=== PATIENT | female | born 1950 | race Caucasian/White ===

== ENCOUNTER → 2018-05-25 | Outpatient (CLI) | payer MEDICARE ==
[~2018-05-25] MED LIST: FURO40TA5 PO; LIDOCAINE HCL 1% 20 ML VIAL ONE; METO10TA8 PO; TRIA1CAP6 PO
[2018-05-25 09:50] LABS: INR 1.19 (0.85-1.15); PARTIAL THROMBOPLASTIN TIME 31.1 SEC (26.3-35.5); PROTHROMBIN TIME 12.5 SEC (9.6-11.6)
--- NOTE | 2018-05-25 10:40 | NUR ---
U/S GD PARACENTESIS PROCEDURE PERFORMED BY DR Jacque HIGGINS. PUNCTURE SITE LLQ AND PATIENT TOLERATED PROCEDURE WELL. TOTAL REMOVED 3.8 LITERS OF CLOUDY YELLOW FLUID. SPECIMEN SENT TO LAB. END OF PROCEDURE AT 1010. CATHETER REMOVED AND DRESSING APPLIED. NO BLEEDING NOTED. DISCHARGE INSTRUCTIONS GIVEN TO PATIENT AND VERBALIZED UNDERSTANDING. DISCHARGED VIA W/C AT 1040. AAO X3 WITH NO C/O PAIN.
[2018-05-25 14:43] LABS: APPEARANCE BODY FLUID CLOUDY (CLEAR); COLOR,BODY FLUID YELLOW (LT YELLOW); SPECIMENTYPE,BODY FLUID ASCITES; TOTAL VOLUME,BODY FLUID 3800 mL
[2018-05-25 14:44] LABS: BODY FLUID RBC 100 /cu. mm.; BODY FLUID WBC 432 /cu. mm.
[2018-05-25 14:48] LABS: BF LYMPHOCYTE 13 %; BF MESOTHELIAL 6 %; BF MONOCYTE 19 %
== END | disposition home or self-care (01) ==
LOC: RAH 08:17
PROVIDERS: ATTEND Internal Medicine Hematology & Oncology
DX: R18.8 Other ascites (principal); K74.60 Unspecified cirrhosis of liver; D69.6 Thrombocytopenia, unspecified; I10 Essential (primary) hypertension; E66.01 Morbid (severe) obesity due to excess calories; L40.9 Psoriasis, unspecified; J44.9 Chronic obstructive pulmonary disease, unspecified; F32.9 Major depressive disorder, single episode, unspecified; M10.9 Gout, unspecified; Z79.899 Other long term (current) drug therapy; Z79.84 Long term (current) use of oral hypoglycemic drugs; Z98.890 Other specified postprocedural states; Z88.8 Allergy status to other drugs, medicaments and biological substances; Z80.3 Family history of malignant neoplasm of breast; Z80.8 Family history of malignant neoplasm of other organs or systems
CPT/HCPCS: 36415; 49083; 85610; 85730; 87071; 87205; 88104; 88305; 89051; A4215

== ENCOUNTER → 2018-05-31 | Outpatient (CLI) | payer MEDICARE ==
[~2018-05-31] MED LIST changes: +ALBUMIN (HUMAN) 25% 100 ML IV SCH; -FURO40TA5 PO; -LIDOCAINE HCL 1% 20 ML VIAL ONE; -METO10TA8 PO; -TRIA1CAP6 PO
[2018-05-31 13:13] LABS: INR 1.21 (0.85-1.15); PARTIAL THROMBOPLASTIN TIME 32.7 SEC (26.3-35.5); PROTHROMBIN TIME 12.7 SEC (9.6-11.6)
--- NOTE | 2018-05-31 15:26 | NUR ---
US GUIDED PARACENTESIS PROCEDURE PERFORMED BY DR. ASHFORD, PUNCTURES SITE TO RLQ AND PATIENT TOLERATED IT WELL. TOTAL REMOVED WAS 4.3LTS OD ASCITES FLUID . END OF PROCEDURE AT 1437.CATHETER REMOVED AND DRESSING APPLIED. NO BLEEDING NOTED. DISCHARGED INSTRUCTIONS GIVEN TO PATIENT AND SHE VERBALIZED UNDERSTANDING. DISCHARGED VIA WHEELCHAIR AAOX3 IN NO DISTRESS.
== END | disposition home or self-care (01) ==
LOC: RAH 11:56
PROVIDERS: ATTEND Internal Medicine Hematology & Oncology
DX: R18.8 Other ascites (principal); Z79.01 Long term (current) use of anticoagulants; I82.90 Acute embolism and thrombosis of unspecified vein; I26.99 Other pulmonary embolism without acute cor pulmonale
CPT/HCPCS: 36415; 49083; 85610; 85730; 96365; A4215; P9046

== ENCOUNTER → 2018-06-11 | Outpatient (CLI) | payer MEDICARE ==
[~2018-06-11] MED LIST changes: -ALBUMIN (HUMAN) 25% 100 ML IV SCH; +FURO40TA5 PO; +METO10TA8 PO; +TRIA1CAP6 PO
[2018-06-11 10:49] LABS: INR 1.15 (0.85-1.15); PARTIAL THROMBOPLASTIN TIME 31.3 SEC (26.3-35.5)
--- NOTE | 2018-06-11 11:25 | NUR ---
US GUIDED PARACENTESIS PROCEDURE PERFORMED BY DR. ASHFORD. PUNCTURE SITE TO THE RIGHT SIDE OF THE ABDOMEN. PT TOLERATED PROCEDURE WELL. TOTAL REMOVED 1 LITER. END OF PROCEDURE AT 1135. CATHETER REMOVED AND DRESSING APPLIED. NO BLEEDING NOTED. DISCHARGE INSTRUCTIONS GIVEN TO PATIENT AND VERBALIZED UNDERSTANDING. DISCHARGED AMBULATORY @ 1230. STABLE, AAO X 3. NO COMPLAINS OF PAIN.
[2018-06-11 12:41] LABS: SPECIMENTYPE,BODY FLUID ASCITES
[2018-06-11 12:42] LABS: APPEARANCE BODY FLUID CLOUDY (CLEAR); COLOR,BODY FLUID YELLOW (LT YELLOW); TOTAL VOLUME,BODY FLUID 1000 mL
[2018-06-11 12:43] LABS: BODY FLUID RBC 399 /cu. mm.; BODY FLUID WBC 579 /cu. mm.
[2018-06-11 12:51] LABS: BF LYMPHOCYTE 50 %; BF MESOTHELIAL 26 %; BF MONOCYTE 20 %
== END | disposition home or self-care (01) ==
LOC: RAH 09:41
PROVIDERS: ATTEND Internal Medicine Hematology & Oncology
DX: R18.8 Other ascites (principal); D69.6 Thrombocytopenia, unspecified; K74.60 Unspecified cirrhosis of liver
CPT/HCPCS: 36415; 49083; 76700; 85610; 85730; 87071; 87205; 89051; 93975; A4215

== ENCOUNTER 2018-06-12 10:39 | Day surgery (SDC) | payer MEDICARE ==
[2018-06-12] VITALS (7 sets, daily range): BP systolic 94–133; BP diastolic 46–50
[~2018-06-12] VITALS: Ht 162.6 cm; Wt 98.3 kg
[2018-06-12] MEDS ORDERED: TRIA1CAP6 PO (12:06)
[2018-06-12] MEDS ORDERED: METO10TA8 PO (12:06)
[2018-06-12] MEDS ORDERED: FURO40TA5 PO (12:06)
[2018-06-12] MEDS ORDERED: SODIUM CHLORIDE 0.9% 1000ML 1,000 ML IV ONE (12:09)
[2018-06-12] MEDS ORDERED: FENTANYL CITRATE PF 50 MCG/1 ML 2ML VIAL ONE (12:29)
== END 2018-06-12 13:23 | disposition home or self-care (01) ==
LOC: DAH 10:39 → ENDO 10:39
PROVIDERS: ATTEND Internal Medicine
DX: Z12.11 Encounter for screening for malignant neoplasm of colon (principal); K63.5 Polyp of colon; D12.4 Benign neoplasm of descending colon; D12.3 Benign neoplasm of transverse colon; K62.1 Rectal polyp; Z86.010 Personal history of colon polyps; Z68.39 Body mass index [BMI] 39.0-39.9, adult; K70.31 Alcoholic cirrhosis of liver with ascites; E03.9 Hypothyroidism, unspecified; E11.9 Type 2 diabetes mellitus without complications; I10 Essential (primary) hypertension; E78.5 Hyperlipidemia, unspecified; Z79.899 Other long term (current) drug therapy; Z98.890 Other specified postprocedural states; Z90.710 Acquired absence of both cervix and uterus; Z80.9 Family history of malignant neoplasm, unspecified; E66.01 Morbid (severe) obesity due to excess calories; I25.10 Atherosclerotic heart disease of native coronary artery without angina pectoris; K57.30 Diverticulosis of large intestine without perforation or abscess without bleeding
CPT/HCPCS: 45380; 82948 ×2; 88305; A4606; J3010; J7030

== ENCOUNTER → 2018-06-25 | Outpatient (CLI) | payer MEDICARE ==
[2018-06-25 08:52] LABS: INR 1.23 (0.85-1.15); PARTIAL THROMBOPLASTIN TIME 31.5 SEC (26.3-35.5); PROTHROMBIN TIME 12.9 SEC (9.6-11.6)
--- NOTE | 2018-06-25 09:40 | NUR ---
U/S GD PARACENTESIS PROCEDURE PERFORMED BY DR. HIGGINS. PUNCTURE SITE RUQ AND PATIENT TOLERATED PROCEDURE WELL. TOTAL REMOVED 2.5 LITERS OF ASCITES FLUID. FID NOT MEET CRITERIA FOR ALBUMIN. END OF PROCEDURE AT 0931. CATHETER REMOVED AND DRESSING APPLIED. NO BLEEDING NOTED. DISCHARGE INSTRUCTIONS GIVEN TO PATIENT AND VERBALIZED UNDERSTANDING. DISCHARGED VIA AMBULATORY. AAO X3 WITH NO C/O PAIN.
== END | disposition home or self-care (01) ==
LOC: RAH 07:58
PROVIDERS: ATTEND Internal Medicine Hematology & Oncology
DX: R18.8 Other ascites (principal); K74.60 Unspecified cirrhosis of liver; Z86.010 Personal history of colon polyps; E11.9 Type 2 diabetes mellitus without complications; I10 Essential (primary) hypertension; E03.9 Hypothyroidism, unspecified; Z98.84 Bariatric surgery status; E78.5 Hyperlipidemia, unspecified; Z79.899 Other long term (current) drug therapy; Z79.84 Long term (current) use of oral hypoglycemic drugs; Z68.39 Body mass index [BMI] 39.0-39.9, adult; Z90.710 Acquired absence of both cervix and uterus; Z98.890 Other specified postprocedural states
CPT/HCPCS: 36415; 49083; 85610; 85730; A4215